=== PATIENT | male | born 1980 | race Caucasian/White ===

== ENCOUNTER 2017-11-25 10:03 | Emergency (ER) | payer OTHER ==
[~2017-11-25] VITALS: Ht 185.4 cm; Wt 95.2 kg
[~2017-11-25 10:03] MED LIST: BUPR150ER PO; CRUTCH3 USE; CYCL10 PO; DIPATR PO; GABA100 PO; HYDACE5325 PO; IBUP400 PO; OXYACE5T PO; PROM25 PO; SEIZURE MEDICATION
[2017-11-25] MEDS ORDERED: Azithromycin500 MG PO (10:48)
[2017-11-25] MEDS ORDERED: Pyridium200 MG PO (10:48)
[2017-11-25] MEDS ORDERED: CEFD300 PO (10:48)
[2017-11-25 11:06] LABS: Source, Urine Clean Catch
[2017-11-25 11:18] LABS: Bilirubin, Urine Neg (Neg); Blood, Urine 3+ (Neg); Glucose Qualitative, Urine Neg (Neg); Ketones, Urine Neg (Neg); Leukocyte Esterase, Urine 2+ (Neg); Nitrite, Urine Neg (Neg); Protein, Urine Neg (Neg); Urobilinogen, Urine NORM (Normal)
[2017-11-25 11:28] LABS: Appearance, Urine Hazy (Clear); Color, Urine Yellow (P-Yellow)
[2017-11-25 11:29] LABS: Bacteria Few /hpf; Squamous Epithelial Cells Rare /hpf (Few); White Blood Cells, Urine 25-50 /hpf (0-5)
== END 2017-11-25 11:07 | disposition home or self-care (01) ==
LOC: ER 10:03
PROVIDERS: Physician Assistant
DX: N39.0 Urinary tract infection, site not specified (principal); Z79.899 Other long term (current) drug therapy; F17.210 Nicotine dependence, cigarettes, uncomplicated
CPT/HCPCS: 81001; 87086; 99283

== ENCOUNTER 2017-12-05 11:15 | Emergency (ER) | payer OTHER ==
[~2017-12-05] VITALS: Ht 185.4 cm; Wt 95.2 kg
[~2017-12-05 11:15] MED LIST changes: +Azithromycin500 MG PO; +CEFD300 PO; +Pyridium200 MG PO
[2017-12-05 11:49] LABS: Source, Urine Clean Catch
[2017-12-05 11:56] LABS: Bilirubin, Urine Neg (Neg); Blood, Urine 3+ (Neg); Glucose Qualitative, Urine Neg (Neg); Ketones, Urine Neg (Neg); Nitrite, Urine Neg (Neg); Protein, Urine Neg (Neg); Urobilinogen, Urine NORM (Normal)
[2017-12-05 12:15] LABS: Appearance, Urine Clear (Clear); Color, Urine Yellow (P-Yellow); Leukocyte Esterase, Urine 1+ (Neg)
[2017-12-05 12:16] LABS: Bacteria Few /hpf; Squamous Epithelial Cells Few /hpf (Few)
[2017-12-05 13:00] LABS: Oval Fat Bodies Few /lpf; Renal Epithelial Few /hpf (0-Rare)
== END 2017-12-05 13:19 | disposition home or self-care (01) ==
LOC: ER 11:15
PROVIDERS: Emergency Medicine
DX: R10.9 Unspecified abdominal pain (principal); F17.210 Nicotine dependence, cigarettes, uncomplicated
CPT/HCPCS: 74176; 81001; 87086; 99284-25

== ENCOUNTER 2019-10-22 10:00 | Emergency (ER) | payer OTHER ==
[~2019-10-22] VITALS: Ht 185.4 cm; Wt 90.7 kg
[~2019-10-22 10:00] MED LIST changes: +ACET325 PO; +HYDR1TAB94 PO; +IBUP600 PO
== END 2019-10-22 11:00 | disposition home or self-care (01) ==
LOC: ER 10:00
DX: S61.512A Laceration without foreign body of left wrist, initial encounter (principal); Z23 Encounter for immunization; F17.210 Nicotine dependence, cigarettes, uncomplicated; X58.XXXA Exposure to other specified factors, initial encounter
CPT/HCPCS: 90471; 90714; 99282-25

== ENCOUNTER 2020-07-10 12:45 | Emergency (ER) | payer OTHER ==
[~2020-07-10] VITALS: Ht 185.4 cm; Wt 97.5 kg
[2020-07-10] MEDS ORDERED: Norco 5-325 Ta1 EACH PO (14:14)
== END 2020-07-10 14:19 | disposition home or self-care (01) ==
LOC: ER 12:45
DX: S93.402A Sprain of unspecified ligament of left ankle, initial encounter (principal); F17.210 Nicotine dependence, cigarettes, uncomplicated; W11.XXXA Fall on and from ladder, initial encounter
CPT/HCPCS: 73610; 99283-25

== ENCOUNTER 2023-08-23 17:15 | Emergency (ER) | payer OTHER ==
[~2023-08-23] VITALS: Ht 185.4 cm; Wt 108.9 kg
[~2023-08-23 17:15] MED LIST changes: +CEFP200 PO; +DOXY100 PO; +Norco 5-325 Ta1 EACH PO
[2023-08-23 18:33] LABS: Source, Urine Clean Catch
[2023-08-23 18:40] LABS: Appearance, Urine Clear (Clear); Bilirubin, Urine Neg (Neg); Blood, Urine Neg (Neg); Color, Urine Yellow (P-Yellow); Glucose Qualitative, Urine 4+ (Neg); Ketones, Urine 2+ (Neg); Leukocyte Esterase, Urine Neg (Neg); Nitrite, Urine Neg (Neg); Protein, Urine 1+ (Neg); Urobilinogen, Urine NORM (Normal)
[2023-08-23] MEDS ORDERED: Ketorolac Tromethamine 30mg Vial IV ONE (22:50)
[2023-08-23] MEDS ORDERED: Ondansetron HCl 2 MG / ML 2ML Vial IV ONE (22:50)
[2023-08-23] MEDS ORDERED: Ketorolac Tromethamine 30mg Vial IM ONE (23:05)
[2023-08-23] MEDS ORDERED: Ondansetron 4 MG SoluTab SL ONE (23:05)
[2023-08-24] MEDS ORDERED: IBUP800 PO (00:29)
[2023-08-24] MEDS ORDERED: ONDA4ODT MM (00:29)
[2023-08-24 00:40] VITALS: BP 132/79
== END 2023-08-24 00:45 | disposition home or self-care (01) ==
LOC: ER 17:15
PROVIDERS: Nurse Practitioner
DX: N13.2 Hydronephrosis with renal and ureteral calculous obstruction (principal); F17.210 Nicotine dependence, cigarettes, uncomplicated
CPT/HCPCS: 74176; A9270; J1885

== ENCOUNTER 2025-01-05 18:11 | Emergency (ER) | payer OTHER ==
[~2025-01-05] VITALS: Ht 185.4 cm; Wt 99.8 kg
[~2025-01-05 18:11] MED LIST changes: +AMOCLA875 PO; +IBUP800 PO; +ONDA4 PO; +ONDA4ODT MM
[2025-01-05 18:20] VITALS: BP 120/88
== END 2025-01-05 20:14 | disposition home or self-care (01) ==
LOC: ER 18:11
DX: R05.9 Cough, unspecified (principal); R68.83 Chills (without fever); F17.210 Nicotine dependence, cigarettes, uncomplicated; Z79.2 Long term (current) use of antibiotics
CPT/HCPCS: 71046; 99283-25

== ENCOUNTER 2025-03-06 21:18 | Emergency (ER) | payer OTHER ==
[~2025-03-06] VITALS: Ht 185.4 cm; Wt 90.7 kg
[2025-03-06 21:20] VITALS: BP 137/102
== END 2025-03-06 23:30 | disposition home or self-care (01) ==
LOC: ER 21:18
DX: S02.841A Fracture of lateral orbital wall, right side, initial encounter for closed fracture (principal); S02.31XA Fracture of orbital floor, right side, initial encounter for closed fracture; S02.401A Maxillary fracture, unspecified side, initial encounter for closed fracture; F17.210 Nicotine dependence, cigarettes, uncomplicated; Y04.2XXA Assault by strike against or bumped into by another person, initial encounter
CPT/HCPCS: 70450; 96372; 99284-25; J1790